=== PATIENT | male | born 2000 | race Caucasian/White ===

== ENCOUNTER 2019-06-27 12:45 | Emergency (ER) | payer BC, SELFPAY ==
[2019-06-27 14:58] VITALS: BP 119/62; PULSE 71; RESP 16; TEMP 36.3; O2SAT 100
--- NOTE | 2019-06-27 16:16 | ED.GENADULT ---
HPI - General Adult General Chief complaint: Upper Respiratory Infection Stated complaint: headache light headed runny nose Time Seen by Provider: 06/27/19 16:16 Source: patient and RN notes reviewed Mode of arrival: ambulatory Limitations: no limitations History of Present Illness HPI narrative: 18-year-old male with complaints of upper respiratory infection symptoms, fatigue, fever, body aches, cough, intermittent headaches (not the worst of his life), intermittent lightheadedness, and decrease appetite for the past 2-3 days. Ibuprofen with little relief. Dry cough. Rhinorrhea and nasal congestion. Exacerbating factors consist of smoke exposure. No high fevers or chills. No nausea, vomiting, and abdominal pain. Denies chest pain, dyspnea, coughing up blood, difficulty swallowing, jaw pain, dental pain, facial pain, foreign body sensation, and rash. Denies syncopal or seizure activities. Some parts of this dictation were generated by voice recognition software and may contain typographical and/or grammatical inaccuracies. Related Data Home Medications Medication Instructions Recorded Confirmed No Home Medications 06/27/19 06/27/19 Allergies Allergy/AdvReac Type Severity Reaction Status Date / Time No Known Allergies Allergy Verified 06/27/19 15:20 Review of Systems Review of Systems: Narrative: CONSTITUTIONAL: Complains of fatigue. Denies fever, chills, sweats. EYES: Denies visual changes, redness, discharge. ENT: Complains of rhinorrhea, congestion. Denies sore throat, otalgia. CARDIOVASCULAR: Denies chest pain, palpitations, edema. RESPIRATORY: Denies dyspnea, wheezing. Complains of dry cough. GASTROINTESTINAL: Denies abdominal pain, nausea, vomiting, diarrhea. Complains of decrease appetite. GENITOURINARY: Denies dysuria, hematuria, abnormal discharge. SKIN: Denies rash or itching. MUSCULOSKELETAL: Denies acute back pain, joint pain. Complains of myalgia. NEUROLOGIC: Denies numbness or focal weakness. Complains of intermittent lightheadedness and BOSWELL. PSYCHIATRIC: Denies anxiety or depression. All systems reviewed & are unremarkable except as noted in HPI and below. FORMERLY [facility] Past Medical History Medical History (Updated 06/28/19 @ 00:00 by Eladia Newton) No significant past medical history Surgical History Surgical History (Updated 06/27/19 @ 16:24 by PAUL Quigley) History of adenoidectomy History of tonsillectomy Family History Family History (Updated 06/27/19 @ 16:24 by PAUL Quigley) Grandparent Hypertension Social History Social History (Updated 06/27/19 @ 16:25 by PAUL Quigley) Smoking status: Current every day smoker Tobacco type: e-cigarettes Alcohol intake: current Alcohol use details: Occasional Substance use: never Living arrangements: with family Occupation/Education: occupation Gender identity (if verbalized by the patient): Male Comments At time of signature, agree with nurse past medical, surgical, social, and family history. There is no relevant family history pertinent to the presenting complaint. Exam Narrative: Exam Narrative: GENERAL: This is a well-nourished, well-developed patient, in no apparent distress. Speaks in full sentences and ambulates with steady gait without dyspnea. HEAD: normocephalic, atraumatic. EYES: PERRL. Sclera clear/white. Vision is grossly intact. EARS: External ears normal, auditory canals clear and without drainage, TMs normal without perforation. Hearing grossly intact. NOSE: External nose normal with no obvious nasal discharge, nares with moderate redness and enlarged turbinates, clear rhinorrhea. THROAT: Mucous membranes moist, posterior pharynx with PND, mild erythema, no exudate, and no tonsils. No drainage, no concern for Peritonsillar abscess. No drooling, trismus, or neck swelling. NECK: Neck supple, non-tender without lymphadenopathy, masses or thyromegaly. CARDIOVASCULAR: R
[2019-06-27 16:20] VITALS: BP 104/65; BP 110/64; BP 112/63; PULSE 65; PULSE 81; PULSE 90
== END 2019-06-27 16:33 | disposition home or self-care (01) ==
PROVIDERS: Emergency Provider Nurse Practitioner Family
DX: B34.9 Viral infection, unspecified (principal); F17.200 Nicotine dependence, unspecified, uncomplicated
CPT/HCPCS: 87804; 99213; G0463